=== PATIENT | male | born 1990 | race Hispanic/Latino ===

== ENCOUNTER 2021-07-27 22:21 | Emergency (ER) | payer OTHER, BC ==
[2021-07-27] MEDS ORDERED: Orphenadrine Citrate 60 MG/2 ML VIAL ONE (23:08)
[2021-07-27] MEDS ORDERED: Acetaminophen 500 MG TAB ONE (23:08)
[2021-07-27] MEDS ORDERED: Bacitracin 1 PK ONE (23:08)
[2021-07-27] MEDS ORDERED: Lidocaine 1% w/Epinephrine 1:100K 20 ML VIAL ONE (23:08)
[2021-07-27] MEDS ORDERED: Ketorolac Tromethamine 30 MG/ML VIAL ONE (23:28)
== END 2021-07-27 23:55 | disposition home or self-care (01) ==
LOC: MADERS 22:21
DX: S01.01XA Laceration without foreign body of scalp, initial encounter (principal); S10.93XA Contusion of unspecified part of neck, initial encounter; V80.010A Animal-rider injured by fall from or being thrown from horse in noncollision accident, initial encounter
CPT/HCPCS: 12002; 70450; 72125; 72128; 96372; J1885; J2360